=== PATIENT | female | born 1975 | race Caucasian/White ===

== ENCOUNTER → 2016-07-02 | Outpatient (CLI) | payer BC ==
[~2016-07-02] MED LIST: ACHD5005 PO; ASPI-587 PO; DIPH50CA33 PO; FAMO20TA5 PO; GABA-488 PO; HYDR-34 PO; HYDR28CR10 TP; HYDR99LO2 TP; MAG30ORA2 PO; METF-472 PO; RIVA15TA PO; RIVA20TA2 PO; SCOP1PAT TD; Simethicone PO
--- OUTSIDE RECORDS SUMMARY | 2016-07-02 18:09 | XMS REPORT ---
Author Author CINDY CRABTREE Organization [employer] Address Unknown Phone Unavailable Care Team Providers Care Yarn Rewinder Name Role Phone CINDY CRABTREE CP Unavailable Allergies No Known Allergies Problems Problem Type Condition Code Onset Dates Condition Status Problem Acute sinusitis, unspecified 461.9 Active Problem Edema 782.3 Active Problem Pain in joint, hand 719.44 Active Problem Venous embolism and thrombosis of deep vessels of distal lower extremity 453.42 Active Problem Acute pharyngitis 462 Active Problem Prediabetes 790.29 Active Problem Unspecified temporomandibular joint disorders 524.60 Active Problem Enthesopathy of unspecified site 726.90 Active Problem Cough 786.2 Active Problem Influenza with other respiratory manifestations 487.1 Active Problem Rash and other nonspecific skin eruption 782.1 Active Problem Pain in joint, lower leg 719.46 Active Problem Sciatica 724.3 Active Medications Medication Code System Code Instructions Start Date End Date Status Dosage Gabapentin [facility] [address]-61 300 MG Feb 28, 2014 1 capsule by Oral route 2-3 times per day PRN sciatic pain Results No Known Results Summary Purpose [employer] Submission
--- NOTE | 2016-07-02 18:41 | Diagnostic Imaging Report ---
INDICATION: Right leg pain and edema. COMPARISON: None. TECHNIQUE: Duplex, tipton-scale and color-flow imaging of the right lower extremity venous system was performed. FINDINGS: The distal superficial femoral vein is not well visualized. Performing wildlife policy professional reports that this is a technically difficult exam secondary to patient body habitus. Otherwise, the remaining visualized portions of the femoral vein, common femoral vein, profunda femoris, and popliteal veins are normal. These vessels show normal compressibility, color flow, and Doppler augmentation. The deep calf veins, although not very well seen, demonstrate no distinct intraluminal thrombus. IMPRESSION: 1. Suboptimal evaluation of the distal femoral vein, but otherwise no evidence of DVT in the right lower extremity. Dictated by: Dictated on workstation # [id number]
== END ==
LOC: RAD 18:06
PROVIDERS: ATTEND Nurse Practitioner Family
DX: R60.0 Localized edema (principal); M79.671 Pain in right foot

== ENCOUNTER → 2017-06-23 | Outpatient (CLI) | payer OTHER ==
--- NOTE | 2017-06-23 18:16 | Diagnostic Imaging Report ---
INDICATION: Routine screening. COMPARISON: Comparison is made with prior study from 02/28/2014. The current study was also evaluated with a Computer Aided Detection (CAD) system. FINDINGS: Scattered fibroglandular densities are noted bilaterally. No dominant mass or malignant-appearing microcalcifications are seen. Tiny nodule in the outer right breast is stable. There are benign calcifications present. The axillae are unremarkable. IMPRESSION: No mammographic features suspicious for malignancy are identified. ACR BI-RADS Category 2: Benign findings. Result letter will be mailed to the patient. Note: At least 10% of breast cancer is not imaged by mammography. Dictated by: Dictated on workstation # [id number]
== END ==
LOC: RAD 12:55
PROVIDERS: ATTEND Nurse Practitioner
DX: Z12.31 Encounter for screening mammogram for malignant neoplasm of breast (principal)
CPT/HCPCS: 77067

== ENCOUNTER → 2017-06-23 | Outpatient (CLI) | payer OTHER ==
--- NOTE | 2017-06-23 14:29 | Diagnostic Imaging Report ---
INDICATION: Left knee pain. Time of exam: 1:31 PM 3 views of the left knee were obtained. Alignment is normal. The joint spaces are well maintained. The articular surfaces are smooth. No fracture, dislocation or effusion is detected. IMPRESSION: No acute abnormality is detected. Dictated by: Dictated on workstation # [id number]
--- NOTE | 2017-06-23 14:30 | Diagnostic Imaging Report ---
INDICATION: Left hip pain. Time of exam 1:39 PM 2 views left hip demonstrate normal femoral acetabular alignment. The joint space is well maintained. Femoral head and neck are intact. No fractures are seen. IMPRESSION: No acute bony abnormality is identified. Dictated by: Dictated on workstation # [id number]
--- NOTE | 2017-06-23 14:30 | Diagnostic Imaging Report ---
INDICATION: Low back pain. Time of exam 1:34 PM 3 views of the lumbar spine were obtained. Curvature and alignment is normal. The vertebral body heights and disc spaces are well-maintained. No fracture or subluxation is identified. IMPRESSION: No acute abnormalities detected. Dictated by: Dictated on workstation # [id number]
== END ==
LOC: RAD 12:51
PROVIDERS: ATTEND Nurse Practitioner Family
DX: M54.5 Low back pain (principal); M25.552 Pain in left hip; M25.562 Pain in left knee
CPT/HCPCS: 72100; 73502; 73562

== ENCOUNTER 2022-04-24 16:49 | Emergency (ER) | payer OTHER, BC ==
[~2022-04-24] VITALS: Ht 165 cm; Wt 120.0 kg
[2022-04-24] MEDS ORDERED: ACETAMINOPHEN 500 MG TAB (TYLENOL) PO ONE (17:15)
[2022-04-24] MEDS ORDERED: NS 100 ML (IVPB) BAG IV ONE (17:30)
[2022-04-24] MEDS ORDERED: IOHEXOL 350 MG/ML 100 ML (OMNIPAQUE 350) VIAL IV ONE (17:30)
[2022-04-24] MEDS ORDERED: HOLD METFORMIN - RECEIVED CONTRAST 20 ML VIAL IV SCH (17:30)
[2022-04-24 17:35] LABS: BILIRUBIN,URINE NEGATIVE (NEGATIVE); CLARITY,URINE CLEAR; COLOR,URINE YELLOW; GLUCOSE, URINE (UA) NEGATIVE (NEGATIVE); KETONES,URINE NEGATIVE (NEGATIVE); LEUKOCYTE ESTERASE ,URINE NEGATIVE (NEGATIVE); NITRITE,URINE NEGATIVE (NEGATIVE); PROTEIN,URINE NEGATIVE (NEGATIVE)
[2022-04-24 17:35] LABS: BASOPHILS % (AUTO) 1 % (0-10); EOSINOPHILS # (AUTO) 0.1 10^3/uL (0.0-0.3); EOSINOPHILS % (AUTO) 2 % (0-10); HEMATOCRIT 42 % (35-52); HEMOGLOBIN 13.7 g/dL (11.5-16.0); LYMPHOCYTES # (AUTO) 2.8 10^3/uL (1.0-4.0); LYMPHOCYTES % (AUTO) 37 % (12-44); MEAN CORPUSCULAR HEMOGLOBIN 28 pg (25-34); MEAN CORPUSCULAR HGB CONC 33 g/dL (32-36); MEAN CORPUSCULAR VOLUME 87 fL (80-99); MEAN PLATELET VOLUME 10.5 fL (9.0-12.2); MONOCYTES # (AUTO) 0.6 10^3/uL (0.0-1.0); MONOCYTES % (AUTO) 7 % (0-12); NEUTROPHILS # (AUTO) 4.1 10^3/uL (1.8-7.8); NEUTROPHILS % (AUTO) 54 % (42-75); PLATELET COUNT 251 10^3/uL (130-400); WHITE BLOOD COUNT 7.7 10^3/uL (4.3-11.0)
[2022-04-24 17:43] LABS: BACTERIA,URINE NEGATIVE /HPF; RBC,URINE RARE /HPF; SQUAMOUS EPITHELIAL CELL,UR 0-2 /HPF; WBC,URINE 0-2 /HPF
[2022-04-24 17:45] LABS: ALBUMIN 4.1 GM/DL (3.2-4.5); POTASSIUM 3.5 MMOL/L (3.6-5.0)
[2022-04-24 17:46] LABS: CALCIUM 9.3 MG/DL (8.5-10.1)
[2022-04-24 17:48] LABS: TOTAL PROTEIN 7.8 GM/DL (6.4-8.2)
[2022-04-24 17:49] LABS: BILIRUBIN,TOTAL 0.4 MG/DL (0.1-1.0)
[2022-04-24 17:51] LABS: CREATININE SERUM 0.85 MG/DL (0.60-1.30)
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
[2022-04-24 18:53] VITALS: BP 130/78
== END 2022-04-24 18:53 | disposition home or self-care (01) ==
LOC: EDUNIT# 16:49 → ER 16:52
DX: S16.1XXA Strain of muscle, fascia and tendon at neck level, initial encounter (principal); S30.1XXA Contusion of abdominal wall, initial encounter; S20.211A Contusion of right front wall of thorax, initial encounter; F17.210 Nicotine dependence, cigarettes, uncomplicated; V89.2XXA Person injured in unspecified motor-vehicle accident, traffic, initial encounter; Y92.410 Unspecified street and highway as the place of occurrence of the external cause
CPT/HCPCS: 36415; 71260; 72125; 74177; 80053; 81000; 85025

== ENCOUNTER 2022-08-05 15:57 | Emergency (ER) | payer OTHER, BC ==
[~2022-08-05] VITALS: Ht 162 cm; Wt 118.0 kg
[2022-08-05 16:05] VITALS: BP 148/95
[2022-08-05] MEDS ORDERED: KETOROLAC 30 MG/ML VIAL IVP STA (16:06)
[2022-08-05] MEDS ORDERED: NS IV 1000 ML 1,000 ML IV STA (16:06)
[2022-08-05 16:12] LABS: BASOPHILS % (AUTO) 0 % (0-10); EOSINOPHILS # (AUTO) 0.2 10^3/uL (0.0-0.3); EOSINOPHILS % (AUTO) 2 % (0-10); HEMATOCRIT 42 % (35-52); HEMOGLOBIN 13.3 g/dL (11.5-16.0); LYMPHOCYTES # (AUTO) 2.6 10^3/uL (1.0-4.0); LYMPHOCYTES % (AUTO) 30 % (12-44); MEAN CORPUSCULAR HEMOGLOBIN 28 pg (25-34); MEAN CORPUSCULAR HGB CONC 32 g/dL (32-36); MEAN CORPUSCULAR VOLUME 88 fL (80-99); MEAN PLATELET VOLUME 10.4 fL (9.0-12.2); MONOCYTES # (AUTO) 0.6 10^3/uL (0.0-1.0); MONOCYTES % (AUTO) 7 % (0-12); NEUTROPHILS # (AUTO) 5.4 10^3/uL (1.8-7.8); NEUTROPHILS % (AUTO) 61 % (42-75); PLATELET COUNT 247 10^3/uL (130-400); WHITE BLOOD COUNT 8.8 10^3/uL (4.3-11.0)
--- NOTE | 2022-08-05 16:13 | ED Chest Pain ---
General Chief Complaint: Chest Pain Stated Complaint: CHEST PAIN Source: patient History of Present Illness Date Seen by Provider: Aug 05, 2022 Time Seen by Provider: 16:00 Initial Comments 47-year-old female presenting with complaints of right-sided chest pain that has been going on since Tuesday. She denies anything making the pain worse or better. She has not tried any medications. 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 She was treated for the DVT and then advised that she did not have to continue any blood thinners. This was more than 4 years ago. 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 and her coworkers made her come to be seen. She denies any nausea or vomiting, chest trauma, abdominal pain, fever, chills. She stated she had a cough over the weekend. She has not had pain like this previously. Timing/Duration: getting worse, 4-5 days Severity/Quality: moderate (6 out of 10) Radiation: no radiation Activities at Onset: none Prior CP/Workup: no prior chest pain ASA po AVICULTURIST: No NTG SL AVICULTURIST: No Associated Symptoms: No abdominal pain, No back pain, No diaphoresis, No dizziness, No edema, No fatigue, No fever/chills, No headache, No heartburn, No nausea/vomiting, No rash; shortness of breath; No swelling/lump in chest, No syncope, No weakness Allergies and Home Medications Allergies Coded Allergies: NKANo Known Allergies (Verified Allergy, Unknown, 11/24/05) Patient Home Medication List Home Medication List Reviewed: Yes Aspirin (Aspir 81) 81 Mg Tablet.dr, 81 MG PO DAILY, (Reported) Entered as Reported by: VAL QUEEN on 03/13/14 1005 Cyclobenzaprine HCl (Cyclobenzaprine HCl) 10 Mg Tablet, 10 MG PO Q8H PRN for SPASMS Prescribed by: ELVIA COSTELLO on 08/05/22 1905 Gabapentin (Gabapentin) 300 Mg Capsule, 300 MG PO DAILY, (Reported) Entered as Reported by: GUSTAVO QUEEN on 07/22/14 1548 Hydrocodone Bit/Acetaminophen (Lortab 7.5 Mg Tablet) 1 Ea Tablet, 1-2 EA PO Q4H PRN for PAIN Prescribed by: PRIYANKA SAUNDERS on 08/14/14 0943 Metformin Hcl (Metformin Hcl Er) 500 Mg Tab.er.24, 500 MG PO DAILY, (Reported) Entered as Reported by: VAL QUEEN on 03/13/14 1005 Rivaroxaban (Xarelto Tablet) 20 Mg Tablet, 20 MG PO DAILY, (Reported) Entered as Reported by: GUSTAVO QUEEN on 07/22/14 1548 Review of Systems Review of Systems Constitutional: No chills, No fever EENTM: No Symptoms Reported Respiratory: See HPI Cardiovascular: See HPI Gastrointestinal: See HPI Genitourinary: No Symptoms Reported Musculoskeletal: no symptoms reported Skin: no symptoms reported Psychiatric/Neurological: No Symptoms Reported Past Solfchf-Hkcyso-Nskrjc Hx Patient Social History Tobacco Use?: No Use of E-Cig and/or Vaping dev: No Substance use?: No Alcohol Use?: No Immunizations Up To Date Second COVID19 Vaccination Prasad: YES Seasonal Allergies Seasonal Allergies: No Past Medical History Surgery/Hospitalization HX: DVT'S, GASTRIC SLEEVE, 4 C SECTIONS, D&C, RT KNEE SCOPE, TUBAL LIGATION AND HYSTERECTOMY Abdominal, Gallbladder, Hysterectomy, Tubal Ligation 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 oz. 121.351309hm; 44.00 BMI Method:Stated General Appearance: No Apparent Distress, Obese HEENT: PERRL/EOMI, Pharynx Normal Neck: Full Range of Motion, Normal Inspection, Non Tender, Supple Respiratory: Chest Non Tender, Lungs Clear, Normal Breath Sounds, No Accessory Muscle Use, No Respiratory Distress Cardiovascular: No Murmur, Normal Peripheral Pulses, Tachycardia Gastrointestinal: Normal Bowel Sounds, No Pulsatile Mass, Non Tender, Soft Extremity: Normal Capillary Refill, Normal Inspection, No Pedal Edema Neurologic/Psychiatric: Alert, Oriented x3, technician helper instrument II-XII Norm as Tested Skin: Normal Color, Warm/Dry Progress/Results/Core Measures Results/Orders Lab Results Laboratory Tests Test 08/05/22 16:00 Range/Units White Blood Count 8.8 4.3-11.0 10^3/uL Red Blood Count 4.73 3.80-5.11 10^6/uL Hemoglobin 13.3 11.5-16.0 g/dL Hematocrit 42 35-52 % Mean Corpuscular Volume 88 80-99 fL Mean Corpuscular Hemoglobin 28 25-34 pg Mean Corpuscular Hemoglobin Concent 32 32-36 g/dL Red Cell Distribution Width 14.6 H 10.0-14.5 % Platelet Count 247 130-400 10^3/uL Mean Platelet Volume 10.4 9.0-12.2 fL Immature Granulocyte % (Auto) 0 % Neutrophils (%) (Auto) 61 42-75 % Lymphocytes (%) (Auto) 30 12-44 % Monocytes (%) (Auto) 7 0-12 % Eosinophils (%) (Auto) 2 0-10 % Basophils (%) (Auto) 0 0-10 % Neutrophils # (Auto) 5.4 1.8-7.8 10^3/uL Lymphocytes # (Auto) 2.6 1.0-4.0 10^3/uL Monocytes # (Auto) 0.6 0.0-1.0 10^3/uL Eosinophils # (Auto) 0.2 0.0-0.3 10^3/uL Basophils # (Auto) 0.0 0.0-0.1 10^3/uL Immature Granulocyte # (Auto) 0.0 0.0-0.1 10^3/uL Prothrombin Time 12.8 12.2-14.7 SEC INR Comment 0.9 0.8-1.4 Activated Partial Thromboplast Time 26 24-35 SEC Sodium Level 144 135-145 MMOL/L Potassium Level 3.6 3.6-5.0 MMOL/L Chloride Level 107 98-107 MMOL/L Carbon Dioxide Level 25 21-32 MMOL/L Anion Gap 12 5-14 MMOL/L Blood Urea Nitrogen 16 7-18 MG/DL Creatinine 0.81 0.60-1.30 MG/DL Estimat Glomerular Filtration Rate 91 BUN/Creatinine Ratio 20 Glucose Level 98 70-105 MG/DL Calcium Level 9.2 8.5-10.1 MG/DL Corrected Calcium 9.0 8.5-10.1 MG/DL Magnesium Level 1.9 1.6-2.4 MG/DL Total Bilirubin 0.2 0.1-1.0 MG/DL Aspartate Amino Transf (AST/SGOT) 25 5-34 U/L Alanine Aminotransferase (ALT/SGPT) 28 0-55 U/L Alkaline Phosphatase 97 40-136 U/L Troponin I < 0.30 <0.30 NG/ML Pro-B-Type Natriuretic Peptide < 36.0 <125.0 PG/ML Total Protein 7.8 6.4-8.2 GM/DL Albumin 4.2 3.2-4.5 GM/DL Lipase 40 8-78 U/L My Orders Orders - ELVIA COSTELLO MD Cbc With Automated Diff (08/05/22 16:06) Magnesium (08/05/22 16:06) Ekg Tracing (08/05/22 16:06) Comprehensive Metabolic Panel (08/05/22 16:06) Protime With Inr (08/05/22 16:06) Partial Thromboplastin Time (08/05/22 16:06) O2 (08/05/22 16:06) Monitor-Rhythm Ecg Trace Only (08/05/22 16:06) Ed Iv/Invasive Line Start (08/05/22 16:06) Lipase (08/05/22 16:06) Troponin I Fs (08/05/22 16:06) Probnp Fs (08/05/22 16:06) Ct Angio Chest W (R/O Pe) (08/05/22 16:06) Ns Iv 1000 Ml (Sodium Chloride 0.9%) (08/05/22 16:06) Ketorolac Injection (Toradol Injection) (08/05/22 16:06) Ct Angio Chest W (R/O Pe) (08/05/22 ) Iohexol Injection (Omnipaque 350 Mg/Ml 1 (08/05/22 17:00) Received Contrast (Hold Metformin- Contr (08/05/22 17:00) Ns (Ivpb) (Sodium Chloride 0.9% Ivpb Bag (08/05/22 17:00) Orphenadrine Inj (Ed Only) (Norflex Inje (08/05/22 18:45) Medications Given in ED Current Medications Medications Dose Ordered Sig/Lindsay Route Start Time Stop Time Status Last Admin Dose Admin Iohexol 100 ml ONCE ONCE IV 08/05/22 17:00 08/05/22 17:01 DC 08/05/22 17:13 100 ML Sodium Chloride 100 ml ONCE ONCE IV 08/05/22 17:00 08/05/22 17:01 DC 08/05/22 17:13 100 ML Vital Signs/I&O 08/05/22 16:05 Temp 36.3 Pulse 107 Resp 22 B/P (MAP) 148/95 (112) Pulse Ox 99 O2 Delivery Room Air Progress Progress Note #1: Progress Note Potential diagnosis of pneumonia, pulmonary embolism, gallbladder disease, pancreatitis, musculoskeletal pain, pleurisy. Obtain peripheral IV access and send labs for complete blood count, comprehensive metabolic profile, coagulation factors, troponin, proBNP, magnesium, lipase. Obtain a CT scan of the chest with contrast to evaluate for possible pulmonary embolism versus pathology to cause her symptoms. Administer normal saline 1 L IV fluid bolus for hydration, Toradol 30 mg IV for pain since she has not tried taking anything. Her cardiac telemetry monitoring shows a heart rate just over 100 sinus rhythm. Electrocardiogram shows sinus rhythm with a heart rate 98 bpm and no acute ST elevation or ischemic changes. patient is 100% on her oxygen saturation on room air. Progress Note #2: Progress Note Complete blood count does not show elevated white blood cell count or low hemoglobin to indicate an infection or severe anemia. Her comprehensive metabolic profile was did not show any acute significant abnormality either. She did not have elevation of her troponin or proBNP. Especially after 4 days of constant pain if this was cardiac but now she should have an elevation of her troponin and it was less than 0.3. The proBNP was also not elevated. Her cardiac telemetry monitoring was showing that her heart rate was slowing down into the 80s and sinus rhythm. Her blood pressure also had improved as she was resting in the bed. She states that the Toradol did not make a significant change in her pain and she was still rated 5 or 6. She states though now it is not as constant as it was before. Awaiting CT scan of the chest to look for acute infection, lung mass, pneumonia, pulmonary embolism, aortic dissection. Progress Note #3: Progress Note I reviewed the radiologist report of the CT scan angiography of the chest and they did not appreciate any acute pulmonary embolism or aortic dissection or abnormality. I reviewed results with the patient and . Patient was having no acute s ignificant abnormality to indicate a heart attack, embolism, aortic dissection, aortic aneurysm, lung mass. I advised patient I cannot give her an exact answer for her symptoms but at least rules out big life-threatening issues. She could try a muscle relaxer in case there is a musculoskeletal component she may also need to have a gallbladder ultrasound or testing. She agreed to a dose of Norflex here in the ED prior to discharge and then we will send a prescription to the pharmacy for cyclobenzaprine as a muscle relaxer for to use as needed if she felt that the Norflex was helping or wanted to try something more than just Tylenol and ibuprofen. Initial ECG Impression Date: Aug 05, 2022 Initial ECG Impression Time: 16:07 Initial ECG Rate: 98 Initial ECG Rhythm: Normal Sinus Initial ECG Comparisson: No Previous ECG Available Comment On my personal interpretation and review her electrocardiogram shows a sinus rhythm with a heart rate of 98 bpm. WI interval [address] elevation. QT interval 326 ms with a QTc interval 382 ms. There is no prior tracing available for comparison. Diagnostic Imaging Diagonstic Imaging: CT Plain Films/CT/US/NM/MRI: chest Comments NAME: BETSY MORRELL [facility] REC#: [id number] PT STATUS: REG ER : 1975 PHYSICIAN: ELVIA COSTELLO MD ADMIT DATE: 08/05/22/ER FS Signed Date of Exam:08/05/22 CT ANGIO CHEST W (R/O PE) PROCEDURE: CT angiography Chest TECHNIQUE: After intravenous administration of contrast, thin section axial CT angiography of the chest was performed. 3D MIP reconstructions were made. All CT scans use one or more of the following dose optimizing techniques: automated exposure control, MA and/or KvP adjustment based on a patient size and exam type, or iterative reconstruction. INDICATION: Shortness breath COMPARISON: CT chest from 04/24/2022 FINDINGS: Vasculature: No pulmonary emboli. No CT evidence of pulmonary hypertension or right ventricular strain. Thoracic aorta is normal in caliber. No aortic dissection or pseudoaneurysm. Heart and mediastinum: Visualized thyroid is normal. No supraclavicular, axillary, or intra-thoracic lymphadenopathy. The heart is normal in size without pericardial effusion. Pleura: No pleural effusion or pneumothorax. Lungs and airway: No endoluminal lesion in the trachea or central bronchi. No pneumonia or edema. A small amount of linear atelectasis are present in both lung bases. Upper abdomen: Allowing for the phase of contrast, no acute abnormality in the upper abdomen is seen. Musculoskeletal: No concerning osseous lesion. IMPRESSION: 1. No acute cardiopulmonary process. Specifically, no pulmonary emboli or acute aortic syndrome. Dictated by: Dictated on workstation # [id number] Dict: 08/05/229 Trans: 08/05/221721 [facility] [phone] Interpreted by: PEDRO VENTURA MD Electronically signed by: PEDRO VENTURA MD 08/05/221721 Reviewed: Reviewed by Me Departure Impression Primary Impression: Right-sided chest pain Disposition: HOME, SELF-CARE Condition: Stable Departure-Patient Inst. Decision time for Depature: 19:03 Referrals: [facility] [place] (PCP/Family) Primary Care Physician Patient Instructions: Chest Pain, Adult ED Add. Discharge Instructions: No signs of pulmonary embolism, heart attack, pneumonia, lung mass. Your labs had all been reassuring as well as your vital signs. You could try the muscle relaxer in case this is a musculoskeletal issue. For continued symptoms to check back through the clinic and see [facility] provider. If worsening or new symptoms you could always be reevaluated. All discharge instructions reviewed with patient and/or family. Voiced understanding. Scripts Cyclobenzaprine HCl (Cyclobenzaprine HCl) 10 Mg Tablet 10 MG PO Q8H PRN for SPASMS for 10 Days, #30 TAB 0 Refills Prov: ELVIA COSTELLO MD 08/05/22 ELVIA COSTELLO MD Aug 05, 2022 16:13
[2022-08-05 16:25] LABS: INR 0.9 (0.8-1.4); PROTHROMBIN TIME PATIENT 12.8 SEC (12.2-14.7)
[2022-08-05 16:43] LABS: BILIRUBIN,TOTAL 0.2 MG/DL (0.1-1.0); CALCIUM 9.2 MG/DL (8.5-10.1); CREATININE SERUM 0.81 MG/DL (0.60-1.30); MAGNESIUM 1.9 MG/DL (1.6-2.4); POTASSIUM 3.6 MMOL/L (3.6-5.0); TOTAL PROTEIN 7.8 GM/DL (6.4-8.2)
[2022-08-05 16:44] LABS: ALBUMIN 4.2 GM/DL (3.2-4.5)
[2022-08-05] MEDS ORDERED: IOHEXOL 350 MG/ML 100 ML (OMNIPAQUE 350) VIAL IV ONE (17:00)
[2022-08-05] MEDS ORDERED: HOLD METFORMIN - RECEIVED CONTRAST 20 ML VIAL IV SCH (17:00)
[2022-08-05] MEDS ORDERED: NS 100 ML (IVPB) BAG IV ONE (17:00)
--- NOTE | 2022-08-05 17:23 | Diagnostic Imaging Report ---
PROCEDURE: CT angiography Chest TECHNIQUE: After intravenous administration of contrast, thin section axial CT angiography of the chest was performed. 3D MIP reconstructions were made. All CT scans use one or more of the following dose optimizing techniques: automated exposure control, MA and/or KvP adjustment based on a patient size and exam type, or iterative reconstruction. INDICATION: Shortness breath COMPARISON: CT chest from 04/24/2022 FINDINGS: Vasculature: No pulmonary emboli. No CT evidence of pulmonary hypertension or right ventricular strain. Thoracic aorta is normal in caliber. No aortic dissection or pseudoaneurysm. Heart and mediastinum: Visualized thyroid is normal. No supraclavicular, axillary, or intra-thoracic lymphadenopathy. The heart is normal in size without pericardial effusion. Pleura: No pleural effusion or pneumothorax. Lungs and airway: No endoluminal lesion in the trachea or central bronchi. No pneumonia or edema. A small amount of linear atelectasis are present in both lung bases. Upper abdomen: Allowing for the phase of contrast, no acute abnormality in the upper abdomen is seen. Musculoskeletal: No concerning osseous lesion. IMPRESSION: 1. No acute cardiopulmonary process. Specifically, no pulmonary emboli or acute aortic syndrome. Dictated by: Dictated on workstation # [id number]
[2022-08-05] MEDS ORDERED: ORPHENADRINE 60 MG/2 ML (NORFLEX) AMP (ED ONLY) IVP STA (18:45)
[2022-08-05] MEDS ORDERED: CYCL10TA25 PO (19:05)
== END 2022-08-05 19:20 | disposition home or self-care (01) ==
LOC: EDUNIT# 15:57 → ER FS 15:59
DX: R07.89 Other chest pain (principal)
CPT/HCPCS: 36415; 71275; 80053; 83690; 83735; 83880; 84484; 85025; 85610; 85730; 93005; 93041; Q9967